=== PATIENT | female | born 2000 | race Caucasian/White ===

== ENCOUNTER 2020-04-24 08:55 | Day surgery (SDC) | payer OTHER ==
[~2020-04-24 08:55] MED LIST: PROPOFOL INJ 200 MG/20 ML VIAL IV ONE
--- OUTSIDE RECORDS SUMMARY | 2020-04-24 08:59 | XMS REPORT ---
:2000 Demographics Address [address] [place] [address] [place] [address] Mobile Phone [phone];PREF Email Address Preferred Language [id number] Marital Status Unknown [employer] Affiliation Unknown Race Unknown Additional Race(s) Unavailable White Ethnic Group Unknown Author [facility] [address] [place] [address] Care Team Providers Name Role Phone Unavailable Unavailable Unavailable Allergies, Adverse Reactions, Alerts Allergy Name Allergy Status Severity Reaction(s) Onset Inactive Treat ing Comments Type Date Date Clinician HYDROCODONE Drug Active Unknown Itching BITARTRATE allergy 04-08 00:00: 00 PHENYLPROPANO Drug Active Unknown Itching ARIANA HCL allergy 04-08 00:00: 00 Hycomine Allergy to Active Moderate Itching (Hydrocodone- substance ppa) Medications Ordered Filled Start Stop Current Ordering Indication Dosage Frequency Signature Comments Components Medication Medication Date Date Medication? Clinician (SIG) Name Name nabumetone No nabumetone Problems Condition Condition Condition Status Onset Resolution Last Treatin g Comments Name Details Category Date Date Treatment Clinician Date Anemia Anemia Problem Active 2019-04 00:00: 00 Procedures Procedure Date / Time Performed Performing Clinician Arpit clark pulse oximetry (PROC) 2020-03-14 00:00:00 Extraction of Garvin Tooth 2019-02-02 00:00:00 Results Test Description Test Time Test Comments Text Results Atomic Results Result Comments iron + TIBC + ferritin, serum 2020-03-15 00:00:00 Test Item Value Reference Range Comments Iron [Mass/volume] in Serum or Plasma (test code = 169 mcg/dL 27-164 2498-4) Iron binding capacity [Mass/volume] in Serum or Plasma 366 m cg/dL (calc) 271-448 (test code = 2500-7) Iron saturation [Mass Fraction] in Serum or Plasma (test 46 % (c alc) 15-45 code = 2502-3) Ferritin [Mass/volume] in Serum or Plasma (test code = 29 NG/mL 16-154 2276-4) Comprehensive metabolic 2000 panel - Serum or [id number] 00:00:00 Test Item Value Reference Range Comments Glucose [Mass/volume] in Serum or Plasma 99 mg/dL 65-99 (test code = 2345-7) Urea nitrogen [Mass/volume] in Serum or 12 mg/dL 7-20 Plasma (test code = 3094-0) Creatinine [Mass/volume] in Serum or 0.56 mg/dL 0.50-1.00 Plasma (test code = 2160-0) Glomerular filtration rate/1.73 sq 135 mL/min/1.73m2 > or = 60 M.predicted [Volume Rate/Area] in Serum, Plasma or Blood by Creatinine-based formula (MDRD) (test code = 98544-3) Glomerular filtration rate/1.73 sq 157 mL/min/1.73m2 > or = 60 M.predicted among blacks [Volume Rate/Area] in Serum, Plasma or Blood by Creatinine-based formula (MDRD) (test code = 00224-5) Urea nitrogen/Creatinine [Mass Ratio] in not applicable 6-22 Serum or Plasma (test code = 3097-3) Sodium [Moles/volume] in Serum or Plasma 139 mmol/L 135-146 (test code = 2951-2) Potassium [Moles/volume] in Serum or 4.0 mmol/L 3.8-5.1 Plasma (test code = 2823-3) Chloride [Moles/volume] in Serum or Plasma 107 mmol/L 98-11 0 (test code = 2075-0) Carbon dioxide, total [Moles/volume] in 24 mmol/L 20-32 Serum or Plasma (test code = 2027-9) Calcium [Mass/volume] in Serum or Plasma 9.6 mg/dL 8.9-10. 4 (test code = 54053-2) Protein [Mass/volume] in Serum or Plasma 6.6 g/dL 6.3-8.2 (test code = 2885-2) Albumin [Mass/volume] in Serum or Plasma 4.3 g/dL 3.6-5.1 (test code = 1751-7) Globulin [Mass/volume] in Serum by 2.3 g/dL (calc) 2.0-3.8 calculation (test code = 28384-4) Albumin/Globulin [Mass Ratio] in Serum or 1.9 (calc) 1.0-2. 5 Plasma (test code = 1759-0) Bilirubin.total [Mass/volume] in Serum or 0.4 mg/dL 0.2-1. 1 Plasma (test code = 1974-2) Alkaline phosphatase [Enzymatic 55 U/L 36-128 activity/volume] in Serum or Plasma (test code = 6768-6) Aspartate aminotransferase [Enzymatic 23 U/L 12-32 activity/volume] in Serum or Plasma (test code = 1920-8) Alanine aminotransferase [Enzymatic 20 U/L 5-32 activity/volume] in Serum or Plasma (test code = 1742-6) CBC W Auto Differential panel - [id number] 00:00:00 Test Item Value Reference Range Comments Leukocytes [#/volume] in Blood by Automated 6.6 thousand/uL 3.8- 10.8 count (test code = 6690-2) Erythrocytes [#/volume] in Blood by 5.01 million/uL 3.80-5.10 Automated count (test code = 789-8) Hemoglobin [Mass/volume] in Blood (test code 14.5 g/dL 11. 7-15.5 = 718-7) Hematocrit [Volume Fraction] of Blood by 42.7 % 35.0-45 .0 Automated count (test code = 4544-3) Erythrocyte mean corpuscular volume [Entitic 85.2 fL 80. 0-100.0 volume] by Automated count (test code = 787-2) Erythrocyte mean corpuscular hemoglobin 28.9 pg 27.0-33. 0 [Entitic mass] by Automated count (test code = 785-6) Erythrocyte mean corpuscular hemoglobin 34.0 g/dL 32.0-36. 0 concentration [Mass/volume] by Automated count (test code = 786-4) Erythrocyte distribution width [Ratio] by 12.2 % 11.0-1 5.0 Automated count (test code = 788-0) Platelets [#/volume] in Blood by Automated 287 thousand/uL 140-4 00 count (test code = 777-3) Platelet mean volume [Entitic volume] in 10.8 fL 7.5-12. 5 Blood by Poonam (test code = 776-5) Neutrophils [#/volume] in Blood by Automated 4085 cells/uL 150 0-7800 count (test code = 751-8) Lymphocytes [#/volume] in Blood by Automated 1577 cells/uL 850 -3900 count (test code = 731-0) Monocytes [#/volume] in Blood by Automated 409 cells/uL 200-9 50 count (test code = 742-7) Eosinophils [#/volume] in Blood by Automated 488 cells/uL 15- 500 count (test code = 711-2) Basophils [#/volume] in Blood by Automated 40 cells/uL 0-200 count (test code = 704-7) Neutrophils/100 leukocytes in Blood by 61.9 % Automated count (test code = 770-8) Lymphocytes/100 leukocytes in Blood by 23.9 % Automated count (test code = 736-9) Monocytes/100 leukocytes in Blood by 6.2 % Automated count (test code = 5905-5) Eosinophils/100 leukocytes in Blood by 7.4 % Automated count (test code = 713-8) Basophils/100 leukocytes in Blood by 0.6 % Automated count (test code = 706-2) Assessments Condition Name Status Diagnosis Date Treating Clinici an Abdominal pain Active 2020-03-14 14:36:09 Iron deficiency anemia Active 2020-03-14 14:39:32 Administration of influenza vaccine Active 2020-03-14 1 4:43:00 Temporomandibular joint disorder Active 2020-03-22 19:1 1:22 Surveillance of oral contraception Active 2020-03-14 14 :29:14 Encounters Start End Encounter Admission Attending Care Care Encounter Date/Time Date/Time Type Type Clinicians Facility Department ID 2020-03-14 2020-03-14 [facility] [id number] 00:00:00 00:00:00 Leonela Immediate Immediate & [address] PA-C: [address] [place] [address], Ph. Immunizations Ordered Immunization Filled Immunization Date Status Commen ts Refusal Reason Name Name influenza, 2020-03-14 Completed injectable, 16:35:24 quadrivalent, preservative free Plan of Treatment Planned Activity Planned Date Details Comments Future Appointment 2020-06-13 10:30:00 Aubree Gipson, [address]; , [place] [address] Social History Smoking Status Start Date Stop Date Never Smoker Vital Signs Vital Name Observation Time Observation Value Comments BP Diastolic 2020-03-14 00:00:00 85 mm[Hg] Height 2020-03-14 00:00:00 65 [in_i] BMI (Body Mass Index) 2020-03-14 00:00:00 25 kg/m2 BP Systolic 2020-03-14 00:00:00 131 mm[Hg] Body Weight 2020-03-14 00:00:00 150 [lb_av] Hospital Discharge Instructions 1. Surveillance of oral contraception pulse oximetry (PROC) Nortrel () 1 mg-35 mcg tablet 2. Abdominal pain abdominal pain: care instructions CMP, serum or plasma diagnostic radiology referral - 19 year old diffuse abdominal pain. + murphys on exam. please perform abdominal u/s gastroenterology referral - diffuse abdominal pain w/ eating >8 months 3. Iron deficiency anemia iron deficiency anemia: care instructions iron + TIBC + ferritin, serum CBC w/ auto diff 4. Administration of influenza vaccine influenza (flu) vaccine: care instructions Afluria Qd (36 mos up)(PF)60 mcg (15 mcg x4)/0.5 mL IM syringe 5. Temporomandibular joint disorder temporomandibular disorder: care instructions Discussion Note 3 month f/u. After performing a Medical Screening Examination, I estimate there is LOW risk for ACUTE APPENDICITIS, BOWEL OBSTRUCTION,ACUTE CHOLECYSTITIS, PERFORATED DIVERTICULITIS, INCARCERATED HERNIA, PANCREATITIS, PELVIC INFLAMMATOR Y DISEASE, PERFORATED ULCER, ECTOPIC , or TUBO-OVARIAN ABSCESS, thus I consider the discharge disposition reasonable. Also, there is no evidence of peritonitis, sepsis, or toxicity. The patient and I have discussed the diagnosis and risks, and we agree with discharging home with close follow-up with the understanding that symptoms and presentations can change. We also discussed returning to the Office immediately if new or worsening symptoms occur. We have discussed the symptoms which are most concerning (e.g., bloody stool, fever, changing or worsening pain, vomiting) that necessitate immediate return.
[2020-04-24] MEDS ORDERED: PROPOFOL INJ 200 MG/20 ML VIAL IV ONE (10:09)
[2020-04-24 12:12] VITALS: BP 124/68
--- NOTE | 2020-04-24 12:34 | Operative Report ---
Operative Report DATE OF SURGERY: 04/24/20 Operative Report: The risk, benefits and alternatives of the procedure including the risk of bleeding, perforation requiring surgery have been explained to the patient in detail and informed consent has been obtained. Patient is placed in the left, lateral decubital position. Timeout was called. Propofol medication is administered. Rectal examination is done which did not reveal any masses, tears or fissures. An Olympus videoscope was introduced into the patient's rectum. The scope was then carefully advanced all the way to the cecum. The cecum is identified by the usual anatomical landmarks including the ileocecal valve as well as the appendiceal office. Photodocumentation is obtained. Intubation of the terminal ileum was done. The scope was then sequentially pulled back via the various segments of the colon including the ascending colon, hepatic flexure , transverse colon, splenic flexure, descending colon and finally into the rectosigmoid portions of the colon. Retroflexion maneuvers performed. PREOPERATIVE DIAGNOSIS: Right lower quadrant pain, change in bowel habits POSTOPERATIVE DIAGNOSIS: Terminal ileitis status post biopsy rule out Crohn's disease OPERATION: Colonoscopy with biopsy SURGEON: SENTHIL ALVARADO ANESTHESIA: LMAC TISSUE REMOVED OR ALTERED: As noted above. COMPLICATIONS: None. ESTIMATED BLOOD LOSS: None. INTRAOPERATIVE FINDINGS: As noted above. PROCEDURE: Patient tolerated the procedure well. No immediate postprocedure complications are noted. Patient is discharged in good condition. Discharge date 04/24/2020. Discharge diet: Regular. Discharge activity: Regular. 2 to 3-week follow-up to discuss findings. Patient is instructed to call the office or go to the emergency room if there are any further problems or questions. Wait on the pathology.
== END 2020-04-24 10:35 | disposition home or self-care (01) ==
LOC: OROUT 08:55
PROVIDERS: ATTEND Internal Medicine Gastroenterology
DX: K50.00 Crohn's disease of small intestine without complications (principal); D64.9 Anemia, unspecified; Z79.3 Long term (current) use of hormonal contraceptives; Z79.1 Long term (current) use of non-steroidal anti-inflammatories (NSAID); F17.290 Nicotine dependence, other tobacco product, uncomplicated
CPT/HCPCS: 45380; 88305 ×2; 00811; J2704; 811